=== PATIENT | female | born 1935 | race Caucasian/White ===

== ENCOUNTER 2016-06-19 10:34 | Inpatient (IN) | payer MEDICARE, BC ==
[2016-06-19] MEDS ORDERED: Lactated Ringers 1,000 ML IV ONE (10:53)
[2016-06-19] MEDS ORDERED: Ondansetron 4 MG/2 ML SDV IVPUSH ONE (10:53)
[2016-06-19] MEDS ORDERED: Famotidine 20 MG/2 ML SDV IVPUSH ONE (10:53)
[2016-06-19] MEDS ORDERED: Pantoprazole 40 MG Vial IVPUSH ONE (10:53)
[2016-06-19 11:28] LABS: CHLORIDE,CL 104 mmol/L (98-107); SODIUM,NA 140 mmol/L (136-145)
--- NOTE | 2016-06-19 12:18 | EDM.PDOC ---
ED HPI GI/ABDOMINAL - General Chief Complaint: Gastrointestinal Problem Stated Complaint: nausea, emesis, loose stools Time Seen by Provider: 06/19/16 10:35 Source of Information: Reports: Patient, Old records ([facility] chart/EMR) History Limitations: Reports: No limitations - History of Present Illness INITIAL COMMENTS - FREE TEXT/NARRATIVE: The patient was transported via city transport van to the emergency room for evaluation of 10/26 specific diffuse abdominal cramping associated with 8 episodes of yellow emesis, moderate diarrhea, and nausea with symptoms starting at about 04:00 A.m. this morning. She has not taken any medications for her symptoms and did not take her morning medications to this point. Patient did get an influenza booster this season with no history of known exposure to infection, food poisoning, etc.. No recent history of other abdominal pain, heartburn, melena, gross hematochezia, hematemesis, or any food intolerance, including fatty foods, etc..The patient denies any chest pain/pressure, heart flutter, dizziness, orthostasis, orthopnea, diaphoresis, paresthesias, recent decreased exercise tolerance, or any other anginal-type symptoms. The patient also denies any recent fever, cough, wheezing, dyspnea, etc.. Symptom Onset Date: 06/19/16 Symptom Onset Time: 04:00 Timing/Duration: Reports: Getting worse, Intermittent Location: generalized Quality: Reports: cramping Severity: moderate Improves with: Reports: other (None) Worsens with: Reports: other (None) Context: Reports: other (As above) Associated Symptoms (-Female): Reports: nausea/vomiting. 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 (see below) (None) - Related Data Allergies/ADRs: Allergies Allergy/AdvReac Type Severity Reaction Status Date / Time ciprofloxacin [From Cipro] Allergy Severe Hives Verified 05/02/16 10:04 ciprofloxacin HCl Allergy Severe Hives Verified 05/02/16 10:04 [From Cipro] Sulfa (Sulfonamide Allergy Severe Hives Verified 05/02/16 10:04 Antibiotics) Penicillins Allergy Intermediate Fainting Verified 05/02/16 10:04 prednisone Allergy Intermediate Swelling Verified 05/02/16 10:04 aspirin Allergy Mild Stomach Verified 05/02/16 10:04 Upset cod liver oil Allergy Mild Stomach Verified 05/02/16 10:04 Upset meperidine HCl [From Demerol] Allergy Mild Stomach Verified 05/02/16 10:04 Upset NSAIDS (Non-Steroidal Allergy Mild Stomach Verified 05/02/16 10:04 Anti-Inflamma Upset Fish Containing Products Allergy Cannot Verified 05/02/16 10:04 Remember morphine Allergy Stomach Verified 05/02/16 10:[address] Scan dye Allergy Severe Hives Uncoded 05/02/16 10:04 hand beer cooler Allergy Severe Difficulty Uncoded 05/02/16 10:04 Breathing Vitamins Allergy Mild Stomach Uncoded 05/02/16 10:04 Upset Home Meds: Home Meds Budesonide [Pulmicort] 0.5 mg IH BID 08/21/13 [History] Furosemide [Lasix] 20 mg PO DAILY 08/21/13 [History] Omeprazole [Prilosec] 20 mg PO DAILY 08/21/13 [History] Lutein 12 mg PO PCDINNER 05/28/14 [History] Meclizine [Antivert] 25 mg PO TID PRN 05/28/14 [History] Montelukast Sodium [Singulair] 10 mg PO DAILY@1200 05/28/14 [History] Albuterol [Proair HFA] 1 - 2 inh INH Q4HR PRN 11/27/14 [History] Calcium Carb/Vitamin D3/Vit K1 [Calcium + Vit D & K Chew] 1 each PO DAILY [History] Gabapentin [Neurontin] 3 cap PO BEDTIME 03/04/16 [History] Gabapentin [Neurontin] 100 mg PO DAILY 03/04/16 [History] Albuterol Sulfate 2.5 mg IH QID PRN #20 ml 05/02/16 [Rx] Cefprozil 500 mg PO BID #14 tablet 05/02/16 [Rx] Cyanocobalamin (Vitamin B-12) [Vitamin B-12] 1,000 mcg PO DAILY@1200 05/02/16 [ History] Past Medical History HEENT History: Reports: Cataract, Impaired vision, Macular degeneration, Retinal detachment, Other (see below). Denies: Allergic rhinitis, Glaucoma, Hard of hearing Other HEENT History: Cataract surgery as below, patient wears glasses, bilateral macular degeneration with right sided surgery as below, intraocular injections of the left eye currently, surgery for retinal detachment as below Cardiovascular History: Reports: Arrhythmia, Cardiomyopathy, Heart Failure, Heart murmur, High cholesterol, Hypertension, Syncope, Other (see below). Denies: Afib, Aneurysm, Blood clots/VTE/DVT, Bypass, CAD, DE, Pacemaker, PTCA, Stents Other Cardiovascular History: PVCs, Incomplete right bundle branch block diagnosed on 05/22/12, cardiomegaly with grade 1 mild diastolic dysfunction by echocardiogram, moderate aortic valve insufficiency and mild mitral valve insufficiency by echocardiogram, fatty liver number syncope on 05/28/14 Respiratory History: Reports: Asthma, COPD, Pulmonary fibrosis, Other (see below ). Denies: PE Other Respiratory History: Possible pulmonary nodules Gastrointestinal History: Reports: Diverticulosis, Gastritis, GERD, Hepatitis, PUD, Other (see below). Denies: Celiac disease, Cholelithiasis, Chronic constipation, Chronic diarrhea, Colon polyp, GI bleed, Helicobacter pylori, Hiatal hernia, Inflammatory bowel disease, Irritable bowel syndrome, Jaundice, Pancreatitis Other Gastrointestinal History: Hepatitis of unknown type in 1945, dysfunctional gallbladder requiring surgery as below Genitourinary History: Reports: Urinary incontinence, UTI, recurrent. 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 Denies: Back pain, chronic, Fracture, Gout, Neck pain, chronic, RA, SLE Neurological History: Reports: Concussion, Headaches, chronic, Head trauma, Seizure, Speech problems, Vertigo, Other (see below). 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 Denies: Abuse, victim of, ADD, ADHD, Addiction, Psych Hospitalization(s), Psychosis, PTSD, Suicide attempt , Suicidal ideation Endocrine/Metabolic History: Reports: Osteoporosis, Other (see below). Denies: Diabetes, type I, Diabetes, type II, Hypothyroidism, IDDM Other Endocrine/Metabolic History: Unknown type of thymus disorder in the Hematologic History: Reports: Anemia, Blood transfusion(s), Iron deficiency, Other (see below) Other Hematologic History: Frozen plasma 1980 but no other blood transfusion, iron shots prior to third /delivery Immunologic History: Reports: None. Denies: AIDS, HIV, SLE Oncologic (Cancer) History: Reports: Basal cell carcinoma. Denies: Cervix, Hodgkin's Lymphoma, Leukemia, Lymphoma, Malignant melanoma, Metastatic, Squamous cell carcinoma, Uterine Other Oncologic History: Basal cell carcinoma of the chest and both hands in about 2012 Dermatologic History: Reports: None. Denies: Eczema, Psoriasis - Infectious Disease History Infectious Disease History: Reports: Chicken pox, Measles, Mumps. Denies: C- difficile, MRSA, Pertussis (whooping cough), Rheumatic Fever, Rubella, Scarlet fever, Shingles, VRE - Past Surgical History Head Surgeries/Procedures: Reports: None HEENT Surgical History: Reports: Cataract surgery, Eye surgery, Oral surgery, Retinal, Other (see below). Denies: Adenoidectomy, Laser surgery, LASIK, Myringotomy w tube(s), Naso-sinus surgery, Tonsillectomy Other HEENT Surgeries/Procedures: Right cataract surgery on 11/25/13, repair of right retinal detachment and right-sided repair of macular degeneration on , complete teeth extraction Cardiovascular Surgical History: Reports: Varicose, Other (see below). Denies: AAA repair, Aneurysm, Carotid stents, Coronary artery bypass, Pacer, Percutaneous transluminal angioplasty Other Cardiovascular Surgeries/Procedures: Varicose vein surgery of the upper legs bilaterally in about 2010 Respiratory Surgical History: Reports: None. Denies: Thoracentesis GI Surgical History: Reports: Appendectomy, Cholecystectomy, Hernia, abdominal, Hernia repair/other, Other (see below). Denies: Hernia, inguinal Other GI Surgeries/Procedures: Appendectomy concurrent with hysterectomy as below, laparoscopic cholecystectomy with concomitant umbilical hernia repair on 11/30/11 secondary to dysfunctional gallbladder, previous flexible sigmoidoscopies versus proctoscopy x2 in the Female Surgical History: Reports: D&C, Dilitation & evacuation, Hysterectomy , Salpingo-oophorectomy, Other (see below) Other Female Surgeries/Procedures: D&C secondary to first trimester SAB in 1958, total hysterectomy with concomitant bilateral salpingo-oophorectomy secondary to uterine fibroids in 1978 although her cervix was not removed until subsequent surgery in the secondary to nonspecific inflammation? Endocrine Surgical History: Reports: None. Denies: Thyroid biopsy Neurological Surgical History: Reports: None. Denies: C-Spine, Discectomy, Laminectomy, Lumbar spine, Spinal fusion, Vertebroplasty Musculoskeletal Surgical History: Reports: None. Denies: Amputation, Arthroscopic procedure, Carpal tunnel, Ganglion cyst, Joint replacement, ORIF, Shoulder surgery Oncologic Surgical History: Reports: None Dermatological Surgical History: Reports: None - Past Imaging History Past Imaging History: Reports: Angiography (Catheterization in 2003), Cardiac echo (Last echocardiogram on 11/24/14 with ejection fraction of 55-60% with valvular disease as above), CAT scan (Last CT scan of the head on 03/04/16 with previous evaluations on 01/26/15, 11/23/14 and 05/28/14), Mammogram (Last on ), MRA (Of the brain and neck on 11/23/14), MRI (Of the brain on 11/24/14), Sleep study (11/15/11), Stress testing (Negative Kim-scan on 11/26/14), Ultrasound ( Abdominal ultrasound on 06/09/15 with previous evaluations in October 2011 and on 08/04/10), Other (see below) (Last EEG on 01/26/15 Positive HIDA scan on 11/02/11 , previous flexible sigmoidoscopies versus proctoscopy x2 in the past in the ) Social & Family History - Family History HEENT: Reports: Allergic rhinitis, Other (see below). Denies: Glaucoma, Macular degeneration, Retinal detachment Other HEENT Family History: Allergic rhinitis in 4 sisters Cardiac: Reports: CAD, Hypertension, DE, Other (see below). Denies: Afib, Aneurysm, Arrhythmia, Blood clots/VTE/DVT, Bypass, Pacemaker, PVD/COD Other Cardiac Family History: Hypertension in parents, 3 brothers, and 3 sisters , brother with fatal DE at age 60 Respiratory: Reports: None. Denies: Asthma, COPD, PE, Pneumothorax, Sleep apnea GI: Reports: None. Denies: Celiac disease, Colon polyps, GERD, GI bleed, Inflammatory bowel disease, Irritable bowel syndrome, PUD : Reports: None. Denies: Dialysis, Renal calculus, Renal disease/ insufficiency, UTI, recurrent OBGYN: Reports: None Musculoskeletal: Reports: None. Denies: Arthritis, Gout, RA, SLE Neurological: Reports: CVA, Other (see below). Denies: Alzheimers disease, Cerebral aneurysms, Dementia, MS, Parkinson's, Seizure, TIA Other Neurological Family History: Father with fatal CVA at 74 Psychiatric: Reports: None. Denies: Abuse, victim of, ADD, ADHD, Anxiety, Depression, Panic attack, Psych hospitalization(s), PTSD Endocrine/Metabolic: Reports: None. Denies: Diabetes, type I, Diabetes, type II , Hypothyroidism, IDDM Hematologic: Reports: None. Denies: Anemia, SLE, Transfusion reaction Immunologic: Reports: None. Denies: AIDS, HIV, SLE Dermatologic: Reports: None. Denies: Eczema, Psoriasis Oncologic: Reports: Lung, Metastatic, Thyroid, Other (see below). Denies: Colon , Hodgkin's lymphoma, Leukemia, Lymphoma, Non-Hodgkin's lymphoma, Skin Other Oncologic Family History: Mother with unknown type of MANAGER DEPARTMENT cancer fatal at age 84 with apparent metastases to the thyroid gland? - Tobacco Use Smoking Status *Q: Never Smoker Used Tobacco, but Quit: No Smoking Cessation Information Provided To Patient: No Second Hand Smoke Exposure: No Second Hand Smoke Education Provided: No - Caffeine Use Caffeine Use: Reports: Coffee (3-4 of weak coffee per day), Soda (Very occasional). Denies: Energy drinks, Tea - Alcohol Use Alcohol Use History: Yes Days Per Week of Alcohol Use: 0 (No previous DWIs, problems with alcohol abuse, etc.) Number of Drinks Per Day: 1 (Occasional wine for holidays for holidays) Total Drinks Per Week: 0 Alcohol Use in Last Twelve Months: Yes Alcohol Use Frequency: Socially - Recreational Drug Use Recreational Drug Use: No Drug Use in Last 12 Months: No Recreational Drug Type: Denies: Amphetamines (Speed), Cocaine, Flunitrazepam, Heroin, Inhalants (Glues, Solvents, Aerosols), Ketamines, LSD (Acid), Marijuana/ Hashish, Methamphetamine - Living Situation & Occupation Living situation: Reports: (89, spouse is legally blind) 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 Denies: fever, chills, weakness, fatigue , night sweats, diaphoresis, decreased appetite, weight loss, weight gain HEENT: Reports: Glasses. Denies: Contact Lenses, Dental pain, Ear discharge, Ear pain, Eye discharge, Eye pain, Hearing loss, Rhinitis, Sinus problem, Throat pain, Vertigo, Vision change Respiratory: Reports: No Symptoms. Denies: Shortness of Breath, Wheezing, Pleuritic Chest Pain, Cough Cardiovascular: Reports: No symptoms. Denies: Chest pain, Blood pressure problem, Claudication, Dyspnea on exertion, Edema, Lightheadedness, Orthopnea, Palpitations, PND, Syncope Endocrine: Reports: no symptoms. Denies: fatigue GI/Abdominal: Reports: Abdominal pain, Diarrhea, Nausea, Stool incontinence ( Secondary to diarrhea), Vomiting. Denies: Anorexia, Black stool, Bloody stool, Constipation, Decreased appetite, Difficulty swallowing, Distension, Flatus, Hematemesis, Hematochezia, Melena, Mucous in stool : Reports: incontinence (Stable by history). Denies: discharge, dysuria, flank pain, frequency, hematuria, urgency, urinary retention Musculoskeletal: Reports: no symptoms. Denies: neck pain, shoulder pain, back pain, leg pain Skin: Reports: no symptoms. Denies: diaphoresis, bruising, pruritis, rash, wound Neurological: Reports: Headache (After arrival to the emergency room). Denies: Confusion, Dizziness, Numbness, Paresthesia, Seizure, Syncope, Tingling, Tremors , Trouble Speaking, Difficulty Walking, Weakness, Change in Speech, Gait Disturbance Psychiatric: Reports: No symptoms. Denies: Agitation, Anxiety, Confusion, Depression, Hallucinations Hematologic/Lymphatic: Reports: no symptoms Immunologic: Reports: no symptoms ED EXAM, GI/ABD - Physical Exam Exam: See Below Exam Limited By: No limitations General Appearance: alert, WD/WN, no apparent distress. No: anxious Eyes: bilateral: normal appearance (No nystagmus), EOMI (PERRLA) Ears: normal external exam, normal canal, hearing grossly normal, normal TMs Nose: normal inspection, normal mucosa, no blood Throat/Mouth: Normal lips, Normal gums, Normal voice, No airway compromise, Dysphagia. No: Normal teeth (Complete absent dentition with patient only wearing her upper dentures), Normal oropharynx (Mild dry mucosa), Inflammation, Perioral cyanosis Head: atraumatic, normocephalic. No: facial swelling, facial tenderness, sinus tenderness Neck: normal inspection, supple, non-tender, full range of motion, carotid bruit (Borderline mild bilateral carotid bruits). No: lymphadenopathy (L), lymphadenopathy (R), thyromegaly Respiratory/Chest: no respiratory distress, lungs clear, normal breath sounds, no accessory muscle use, chest non-tender. No: pleural rub, retractions Cardiovascular: normal peripheral pulses, regular rate, rhythm, no edema, no gallop, no JVD, no murmur (Despite echocardiogram results as above), no rub. No : gallop/S3, gallop/S4, friction rub GI/Abdominal: normal bowel sounds, no organomegaly, no distention, no abnormal bruit, no mass, tenderness (Mild diffuse nonspecific palpation pain), rebound ( Portable). No: guarding (Female) Exam: Deferred Rectal (Female) Exam: Normal Exam, Normal rectal tone, Heme - stool (Brown stool ), Hemorrhoids (Grade 2-3 internal/external hemorrhoids with moderate perirectal inflammation), Tenderness (No Dyllan space tenderness). No: Fecal impaction Back Exam: normal inspection, full range of motion. No: CVA tenderness (L), CVA tenderness (R), muscle spasm Extremities: normal inspection, normal range of motion, non-tender, no pedal edema, normal capillary refill. No: Malcolm's Sign Neurological: alert, oriented, CN II-XII intact, normal cognition, normal gait, normal reflexes (Negative Babinski's), no motor/sensory deficits Psychiatric: normal affect, normal mood Skin Exam: Warm, Dry, Intact, Normal color, No rash. No: Diaphoretic, Ecchymosis, Jaundice, Lymphangitis, Pallor, Petechiae, Rash, Wound/incision Lymphatic: no adenopathy Course - Vital Signs Last Recorded V/S: Last Vital Signs Temp 37.1 C 06/19/16 10:56 Pulse 66 04/03/17 10:56 Resp 16 06/19/16 10:56 BP 145/76 H 06/19/16 10:56 Pulse Ox 96 06/19/16 10:56 Vital Signs - 24 hr 06/19/16 10:56 Temperature [ 37.1 C Oral] Pulse, 66 Peripheral [ Left Brachial] Respiratory 16 Rate Blood Pressure 145/76 H [Left Upper Arm ] O2 Sat by Pulse 96 Oximetry - Orders/Labs/Meds Orders: Active Orders 24 hr Category Date Time Status Peripheral IV Care [RC] . DIRECTED Care 06/19/16 10:54 Active Nothing per Oral Now Diet [DIET] Diet 06/19/16 Breakfast Active Abdomen Series w Chest 1V [CR] Stat Exams 06/19/16 10:52 Taken Gabapentin [Neurontin] Med 06/19/16 12:30 Active 100 mg PO DAILY Sodium Chloride 0.9% [Saline Flush] Med 06/19/16 10:53 Active 10 ml FLUSH ASDIRECTED PRN cefTRIAXone [Rocephin] 1 gm Med 06/19/16 12:30 Active Sodium Chloride 0.9% [Normal Saline] 100 ml IV Q12H metroNIDAZOLE/Normal Saline [Flagyl 500 MG in NS 100 ML Med 06/19/16 12:30 Active ] 500 mg Premix Bag 1 bag IV Q8H Peripheral IV Insertion Adult [OM.PC] Stat Oth 06/19/16 10:53 Ordered Medication Orders Gabapentin (Neurontin) 100 mg PO DAILY [facility] Last Admin: 06/19/16 12:35 Dose: 100 mg Ceftriaxone Sodium 1 gm/ (Sodium Chloride) 100 mls @ 200 mls/hr IV Q12H CHRISTY Last Admin: 06/19/16 12:34 Dose: 200 mls/hr Metronidazole 500 mg/ Premix 100 mls @ 100 mls/hr IV Q8H CHRISTY Last Admin: 06/19/16 13:08 Dose: 100 mls/hr Sodium Chloride (Saline Flush) 10 ml FLUSH ASDIRECTED PRN PRN Reason: Keep Vein Open Labs: Laboratory Tests 06/19/16 06/19/16 06/19/16 Range/Units 11:05 11:05 11:05 WBC 11.9 H (4.0-10.2) K/uL RBC 4.79 (3.77-5.09) M/uL Hgb 14.4 (11.7-15.5) g/dL Hct 44.1 (34.0-46.0) % MCV 92.1 (84.0-98.0) fL MCH 30.1 (28.2-33.3) pg MCHC 32.7 (31.7-36.0) g/dL RDW 13.1 (11.2-14.1) % Plt Count 227 (150-350) K/uL Neut % (Auto) 81.6 H (45.0-80.0) % Lymph % (Auto) 11.9 (10.0-50.0) % [place] % (Auto) 5.8 (2.0-14.0) % Eos % (Auto) 0.6 (0.0-5.0) % Baso % (Auto) 0.1 (0.0-2.0) % Neut # (Auto) 9.75 H (1.40-7.00) K/uL Lymph # (Auto) 1.42 (0.50-3.50) K/uL [place] # (Auto) 0.69 (0.00-1.00) K/uL Eos # (Auto) 0.07 (0.00-0.50) K/uL Baso # (Auto) 0.01 (0.00-0.20) K/uL PT (9.8-11.7) SEC INR APTT (23.5-30.0) SEC Sodium 140 (136-145) mmol/L Potassium 3.9 (3.5-5.1) mmol/L Chloride 104 (98-107) mmol/L Carbon Dioxide 27.0 (21.0-32.0) mmol/L BUN 12 (7-18) mg/dL Creatinine 0.68 (0.51-1.17) mg/dL Est Cr Clr Drug Dosing 46.61 mL/min Estimated GFR (MDRD) > 60 mL/min Glucose 114 H (74-106) mg/dL Lactic Acid (0.4-2.0) mmol/L Uric Acid 4.7 (2.6-7.2) mg/dL Calcium 8.7 (8.5-10.1) mg/dL Magnesium 1.9 (1.8-2.4) mg/dL Total Bilirubin 0.4 (0.2-1.0) mg/dL AST 37 (15-37) U/L ALT 40 (12-78) U/L Alkaline Phosphatase 108 (46-116) IU/L Total Protein 8.0 (6.4-8.2) g/dL Albumin 3.6 (3.4-5.0) g/dL Amylase 59 (25-115) U/L Lipase 162 (73-393) U/L H. pylori IgG Antibody Negative (NEGATIVE) 06/19/16 06/19/16 Range/Units 11:05 11:05 WBC (4.0-10.2) K/uL RBC (3.77-5.09) M/uL Hgb (11.7-15.5) g/dL Hct (34.0-46.0) % MCV (84.0-98.0) fL MCH (28.2-33.3) pg MCHC (31.7-36.0) g/dL RDW (11.2-14.1) % Plt Count (150-350) K/uL Neut % (Auto) (45.0-80.0) % Lymph % (Auto) (10.0-50.0) % [place] % (Auto) (2.0-14.0) % Eos % (Auto) (0.0-5.0) % Baso % (Auto) (0.0-2.0) % Neut # (Auto) (1.40-7.00) K/uL Lymph # (Auto) (0.50-3.50) K/uL [place] # (Auto) (0.00-1.00) K/uL Eos # (Auto) (0.00-0.50) K/uL Baso # (Auto) (0.00-0.20) K/uL PT 10.9 (9.8-11.7) SEC INR 1.0 APTT 25.2 (23.5-30.0) SEC Sodium (136-145) mmol/L Potassium (3.5-5.1) mmol/L Chloride (98-107) mmol/L Carbon Dioxide (21.0-32.0) mmol/L BUN (7-18) mg/dL Creatinine (0.51-1.17) mg/dL Est Cr Clr Drug Dosing mL/min Estimated GFR (MDRD) mL/min Glucose (74-106) mg/dL Lactic Acid 2.1 H (0.4-2.0) mmol/L Uric Acid (2.6-7.2) mg/dL Calcium (8.5-10.1) mg/dL Magnesium (1.8-2.4) mg/dL Total Bilirubin (0.2-1.0) mg/dL AST (15-37) U/L ALT (12-78) U/L Alkaline Phosphatase (46-116) IU/L Total Protein (6.4-8.2) g/dL Albumin (3.4-5.0) g/dL Amylase (25-115) U/L Lipase (73-393) U/L H. pylori IgG Antibody (NEGATIVE) Microbiology 06/19/16 12:10 Influenza Type A Antigen Screen - Final Nasopharyngeal Swab - Nare, Right NEGATIVE INFLUENZA A VIRUS AG Influenza Type B Antigen Screen - Final NEGATIVE INFLUENZA B VIRUS AG 06/19/16 10:53 Stool Occult Blood (NIKA) - Final Stool / Feces NEGATIVE OCCULT BLOOD Meds: Medications Generic Name Dose Route Start Last Admin Trade Name Freq PRN Reason Stop Dose Admin Gabapentin 100 mg 06/19/16 12:30 06/19/16 12:35 Neurontin PO 100 mg DAILY CHRISTY Administration Ceftriaxone Sodium 1 gm/ 100 mls @ 200 mls/hr 06/19/16 12:30 06/19/16 12:34 Sodium Chloride IV 200 mls/hr Q12H CHRISTY Administration Metronidazole 500 mg/ Premix 100 mls @ 100 mls/hr 06/19/16 12:30 06/19/16 13: 08 IV 100 mls/hr Q8H CHRISTY Administration Sodium Chloride 10 ml 06/19/16 10:53 Saline Flush FLUSH ASDIRECTED PRN Keep Vein Open Discontinued Medications Generic Name Dose Route Start Last Admin Trade Name Freq PRN Reason Stop Dose Admin Famotidine 40 mg 06/19/16 10:53 06/19/16 11:26 Pepcid IVPUSH 06/19/16 10:54 40 mg ONETIME ONE Administration Lactated Ringer's 1,000 mls @ 999 mls/hr 06/19/16 10:53 06/19/16 11:57 Ringers, Lactated IV 06/19/16 11:53 999 mls/hr .BOLUS ONE Administration Ondansetron HCl 4 mg 06/19/16 10:53 06/19/16 11:26 Zofran IVPUSH 06/19/16 10:54 4 mg ONETIME ONE Administration Pantoprazole Sodium 40 mg 06/19/16 10:53 06/19/16 11:26 Protonix Iv IVPUSH 06/19/16 10:54 40 mg ONETIME ONE Administration - Radiology Interpretation Free Text/Narrative:: Acute abdominal x-rays shows evidence of poor inspiratory film with moderate cardiomegaly, COPD, and diffuse stool with probable pulmonary hypertension. Occasional fluid levels and somewhat increased bowel gaseous pattern, however no evidence of significant ileus, obstruction, or free air moderate osteoarthritic changes in the spine Departure - Departure Time of Disposition: 13:45 Disposition: Admitted As Inpatient 66 Condition: fair Clinical Impression: Abdominal pain, Peritonitis, Lactic acid increased, Peptic reflux disease, COPD (chronic obstructive pulmonary disease), Dehydration, Seizure disorder, HTN , Benign hypertension, Heart disease Referrals: Josiah Reardon PA [Primary Care Provider] - Forms: ED Department Discharge Care Plan Goals: See plan - Problem List & Annotations (1) Abdominal pain SNOMED Code(s): 35065589 Code(s): R10.9 - UNSPECIFIED ABDOMINAL PAIN Status: Acute Priority: High Current Visit: Yes Onset Date: 06/19/16 Annotation/Comment:: Nonspecific abdominal pain with possible beginning secondary ileus and peritonitis as below. Differential diagnoses include viral gastroenteritis, diverticulitis, etc. Blood work and x-rays to be repeated in the a.m.. Abdominal assessments with vitals. Qualifiers: Abdominal location: generalized Qualified Code(s): R10.84 - Generalized abdominal pain (2) Peritonitis SNOMED Code(s): 43666540, 91695956, 326610249 Code(s): K65.9 - PERITONITIS, UNSPECIFIED Status: Acute Priority: High Current Visit: Yes Onset Date: 06/19/16 Annotation/Comment:: Strong possibility of diverticulitis with secondary peritonitis. IV Rocephin and IV Flagyl initiated in the emergency room. Consider CT scan of the abdomen and pelvis depending on her clinical course. Note that patient is allergic to contrast dye. Patient would likely benefit from an EGD and colonoscopy on an outpatient basis. Surgical/GI consultation as needed (3) Lactic acid increased SNOMED Code(s): 32336951 Code(s): E87.2 - ACIDOSIS Status: Acute Priority: High Current Visit: Yes Onset Date: 06/19/16 Annotation/Comment:: Mildly elevated lactic acid level. IV fluids initiated. Repeat lactic acid level in 6 hours and in the a.m. No clinical evidence of significant acidosis (4) Peptic reflux disease SNOMED Code(s): 61867252 Code(s): K21.9 - GASTRO-ESOPHAGEAL REFLUX DISEASE WITHOUT ESOPHAGITIS Status: Chronic Priority: Medium Current Visit: No Annotation/Comment:: Stable by history. High-dose IV Pepcid and IV Protonix given in the emergency room as GI prophylaxis (5) HTN, Benign hypertension SNOMED Code(s): 56317177 Code(s): I10 - ESSENTIAL (PRIMARY) HYPERTENSION Status: Chronic Priority : Medium Current Visit: Yes Annotation/Comment:: Blood pressures under good control in the emergency room and previously by patient history. (6) Dehydration SNOMED Code(s): 03655542 Code(s): E86.0 - DEHYDRATION Status: Acute Priority: High Current Visit : No Onset Date: 06/19/16 Annotation/Comment:: 1 L of lactated Ringer's IV bolus initiated in the emergency room with continuation of IV fluids thereafter (7) Seizure disorder SNOMED Code(s): 774215648 Code(s): G40.909 - EPILEPSY, UNSP, NOT INTRACTABLE, WITHOUT STATUS EPILEPTICUS Status: Chronic Priority: High Current Visit: Yes Onset Date : 03/09/15 Annotation/Comment:: Morning dose of Dilantin given in the emergency room. Seizure disorder has been under good control by her history. Dilantin level in the a.m. (8) Heart disease SNOMED Code(s): 74627048 Code(s): I51.9 - HEART DISEASE, UNSPECIFIED Status: Chronic Priority: Medium Current Visit: Yes Annotation/Comment:: Note history of CHF and valvular disease as above. Stable by history with no recent chest pain, anginal complaints, etc. No evidence of clinical CHF. (9) COPD (chronic obstructive pulmonary disease) SNOMED Code(s): 76548310 Code(s): J44.9 - CHRONIC OBSTRUCTIVE PULMONARY DISEASE, UNSPECIFIED Status : Chronic Priority: Medium Current Visit: No Annotation/Comment:: Stable by history with no recent fever or bronchitic-type symptoms, etc. Qualifiers: COPD type: unspecified COPD Qualified Code(s): J44.9 - Chronic obstructive pulmonary disease, unspecified - Problem List Review Problem List Initiated/Reviewed/Updated: Yes - My Orders Last 24 Hours: My Active Orders 06/19/16 10:52 Abdomen Series w Chest 1V [CR] Stat 06/19/16 10:53 Sodium Chloride 0.9% [Saline Flush] 10 ml FLUSH ASDIRECTED PRN Peripheral IV Insertion Adult [OM.PC] Stat 06/19/16 10:54 Peripheral IV Care [RC] . DIRECTED 06/19/16 12:30 Gabapentin [Neurontin] 100 mg PO DAILY cefTRIAXone [Rocephin] 1 gm Sodium Chloride 0.9% [Normal Saline] 100 ml IV Q12H metroNIDAZOLE/Normal Saline [Flagyl 500 MG in NS 100 ML] 500 mg Premix Bag 1 bag IV Q8H 06/19/16 Breakfast Nothing per Oral Now Diet [DIET] - Assessment/Plan Admission H&P: Please use this note as an admission H&P Last 24 Hours: My Active Orders 06/19/16 10:52 Abdomen Series w Chest 1V [CR] Stat 06/19/16 10:53 Sodium Chloride 0.9% [Saline Flush] 10 ml FLUSH ASDIRECTED PRN Peripheral IV Insertion Adult [OM.PC] Stat 06/19/16 10:54 Peripheral IV Care [RC] . DIRECTED 06/19/16 12:30 Gabapentin [Neurontin] 100 mg PO DAILY cefTRIAXone [Rocephin] 1 gm Sodium Chloride 0.9% [Normal Saline] 100 ml IV Q12H metroNIDAZOLE/Normal Saline [Flagyl 500 MG in NS 100 ML] 500 mg Premix Bag 1 bag IV Q8H 06/19/16 Breakfast Nothing per Oral Now Diet [DIET] Assessment:: As above Plan: As above. Extensive precautions were given to the patient, who is in agreement with the treatment plan. The patient will require about 3-4 days of inpatient/ acute care secondary to multiple health problems as above.
[2016-06-19] MEDS ORDERED: Gabapentin 100 MG Cap PO SCH (12:30)
[2016-06-19] MEDS: cefTRIAXone 1 GM in Sodium Chloride 0.9% 100 ML IV SCH ×2 (12:34→23:37)
[2016-06-19] MEDS: metroNIDAZOLE/Normal Saline 500 MG in Premix Bag 1 BAG IV SCH ×2 (13:08→19:59)
[2016-06-19] MEDS ORDERED: Acetaminophen 325 MG Tab PO PRN (14:00)
[2016-06-19] MEDS ORDERED: Albuterol 0.083% 2.5 MG/3 ML Neb Soln INH PRN (14:00)
[2016-06-19] MEDS ORDERED: Sodium Chloride 0.9% 10 ML Syringe FLUSH PRN (14:09)
[2016-06-19] MEDS ORDERED: Temazepam 15 MG Cap PO PRN (14:09)
[2016-06-19] MEDS ORDERED: Albuterol/Ipratropium 3.0-0.5 MG/3 ML Neb Soln NEB PRN (14:09)
[2016-06-19] MEDS: Sodium Chloride 0.9% 10 ML Syringe FLUSH PRN (14:12)
[2016-06-19] MEDS: Ondansetron 4 MG/2 ML SDV IVPUSH PRN ×2 (14:12→19:59)
[2016-06-19] MEDS: Dextrose 5%-Lactated Ringers 1,000 ML IV SCH (15:41)
[2016-06-19] MEDS: Budesonide 0.25 MG/2 ML Neb Susp NEB SCH (19:58)
[2016-06-19] MEDS: Albuterol/Ipratropium 3.0-0.5 MG/3 ML Neb Soln NEB SCH (19:58)
[2016-06-19] MEDS: Gabapentin 100 MG Cap PO SCH (19:58)
[2016-06-19] MEDS: Pantoprazole 40 MG Vial IVPUSH SCH (23:30)
[2016-06-20] MEDS: Sodium Chloride 0.9% 10 ML Syringe FLUSH PRN ×5 (00:17→11:22)
[2016-06-20] MEDS: Albuterol/Ipratropium 3.0-0.5 MG/3 ML Neb Soln NEB SCH ×4 (01:37→20:14)
[2016-06-20] MEDS: metroNIDAZOLE/Normal Saline 500 MG in Premix Bag 1 BAG IV SCH ×3 (04:38→20:16)
[2016-06-20 07:53] LABS: CHLORIDE,CL 107 mmol/L (98-107); SODIUM,NA 141 mmol/L (136-145)
[2016-06-20] MEDS: Dextrose 5%-Lactated Ringers 1,000 ML IV SCH (08:15)
[2016-06-20] MEDS: Furosemide 20 MG Tab PO SCH (08:16)
[2016-06-20] MEDS: Gabapentin 100 MG Cap PO SCH ×2 (08:16→20:15)
[2016-06-20] MEDS: Budesonide 0.25 MG/2 ML Neb Susp NEB SCH ×2 (08:16→20:16)
[2016-06-20] MEDS: Pantoprazole 40 MG Vial IVPUSH SCH (10:17)
[2016-06-20] MEDS: Ondansetron 4 MG/2 ML SDV IVPUSH PRN (10:17)
[2016-06-20] MEDS ORDERED: Iopamidol 612 MG/ML 100 ML Bottle IVPUSH ONE (10:30)
[2016-06-20] MEDS ORDERED: methylPREDNISolone Sodium Succinate 125 MG/2 ML SDV IVPUSH ONE (10:50)
--- NOTE | 2016-06-20 11:05 | PCM.PN ---
- General Info Date of Service: 06/20/16 Admission Dx/Problem (Free Text): Abdominal pain Functional Status: Reports: pain controlled, ambulating, urinating, incentive spirometry. Denies: tolerating diet (N.p.o.), new symptoms Pain Score: 5 - Review of Systems General: Reports: Fever (Yesterday evening however afebrile this morning). Denies: Weakness, Fatigue, Malaise, Chills, Night Sweats, Appetite (Ready to eat breakfast) HEENT: Reports: post nasal drip, sinus congestion, rhinitis. Denies: ear pain, eye pain, headaches, sore throat, visual changes Pulmonary: Reports: cough. Denies: shortness of breath, pleuritic chest pain, sputum, hemoptysis, wheezing Cardiovascular: Reports: No Symptoms. Denies: Chest Pain, Palpitations, Dyspnea on Exertion, Orthopnea, PND, Edema, Lightheadedness Gastrointestinal: Reports: Abdominal pain, Diarrhea. Denies: Constipation, Decreased appetite, Difficulty swallowing, Flatus, Hematochezia, Melena, Nausea , Vomiting Genitourinary: Reports: no symptoms. Denies: dysuria, frequency, burning, pain , urgency, incontinence, hematuria, retention, flank pain Musculoskeletal: Reports: no symptoms. Denies: neck pain, shoulder pain, arm pain, back pain, leg pain Skin: Reports: no symptoms. Denies: jaundice, diaphoresis, bruising Neurological: Reports: No Symptoms. Denies: Confusion, Dizziness, Numbness, Paresthesia, Tingling, Weakness Psychiatric: Reports: no symptoms. Denies: confusion, depression, anxiety - Patient Data Vitals - most recent: Last Vital Signs Temp 36.1 C 06/20/16 04:00 Pulse 65 06/20/16 07:56 Resp 17 06/20/16 07:56 BP 105/62 06/20/16 07:56 Pulse Ox 96 06/20/16 07:56 Weight - most recent: 74.843 kg I&O - last 24 hours: Intake & Output 06/19/16 06/20/16 06/20/16 22:59 06:59 14:59 Intake Total 444 Output Total 300 Balance 444 -300 Imaging Impressions - last 24 hrs: Acute abdominal x-rays shows progression of mild to moderate increased bowel gaseous pattern, including multiple fluid levels, however no free air. Moderate COPD and cardiomegaly noted with possible right middle lobe infiltrates versus atelectasis. Pulmonary hypertension with no evidence of CHF. Osteoarthritic changes noted. Note status post cholecystectomy Telephone consultation at 12:42 p.m. with the radiology department at [facility]. Verbal report of CT scan of the abdomen and pelvis with both oral and IV contrast positive for moderate diverticulosis in the sigmoid region, however no direct evidence of acute diverticulitis abscess, etc. No other acute findings noted with the patient status post cholecystectomy and appendectomy Lab Results last 24 hrs: Laboratory Results - last 24 hr 06/19/16 06/19/16 06/20/16 Range/Units 15:38 15:38 06:55 WBC 5.9 (4.0-10.2) K/uL RBC 3.92 (3.77-5.09) M/uL Hgb 11.8 D (11.7-15.5) g/dL Hct 36.4 (34.0-46.0) % MCV 92.9 (84.0-98.0) fL MCH 30.1 (28.2-33.3) pg MCHC 32.4 (31.7-36.0) g/dL RDW 13.1 (11.2-14.1) % Plt Count 213 (150-350) K/uL Neut % (Auto) 66.1 (45.0-80.0) % Lymph % (Auto) 22.4 (10.0-50.0) % Dillon % (Auto) 10.5 (2.0-14.0) % Eos % (Auto) 0.8 (0.0-5.0) % Baso % (Auto) 0.2 (0.0-2.0) % Neut # (Auto) 3.89 (1.40-7.00) K/uL Lymph # (Auto) 1.32 (0.50-3.50) K/uL Dillon # (Auto) 0.62 (0.00-1.00) K/uL Eos # (Auto) 0.05 (0.00-0.50) K/uL Baso # (Auto) 0.01 (0.00-0.20) K/uL PT (9.8-11.7) SEC INR APTT (23.5-30.0) SEC Sodium (136-145) mmol/L Potassium (3.5-5.1) mmol/L Chloride (98-107) mmol/L Carbon Dioxide (21.0-32.0) mmol/L BUN (7-18) mg/dL Creatinine (0.51-1.17) mg/dL Est Cr Clr Drug Dosing mL/min Estimated GFR (MDRD) mL/min Glucose (74-106) mg/dL Lactic Acid 1.3 (0.4-2.0) mmol/L Calcium (8.5-10.1) mg/dL Total Bilirubin (0.2-1.0) mg/dL AST (15-37) U/L ALT (12-78) U/L Alkaline Phosphatase (46-116) IU/L Total Protein (6.4-8.2) g/dL Albumin (3.4-5.0) g/dL Amylase (25-115) U/L Lipase (73-393) U/L Phenytoin Cancelled 06/20/16 06/20/16 06/20/16 Range/Units 06:55 06:55 06:55 WBC (4.0-10.2) K/uL RBC (3.77-5.09) M/uL Hgb (11.7-15.5) g/dL Hct (34.0-46.0) % MCV (84.0-98.0) fL MCH (28.2-33.3) pg MCHC (31.7-36.0) g/dL RDW (11.2-14.1) % Plt Count (150-350) K/uL Neut % (Auto) (45.0-80.0) % Lymph % (Auto) (10.0-50.0) % Dillon % (Auto) (2.0-14.0) % Eos % (Auto) (0.0-5.0) % Baso % (Auto) (0.0-2.0) % Neut # (Auto) (1.40-7.00) K/uL Lymph # (Auto) (0.50-3.50) K/uL Dillon # (Auto) (0.00-1.00) K/uL Eos # (Auto) (0.00-0.50) K/uL Baso # (Auto) (0.00-0.20) K/uL PT 11.7 (9.8-11.7) SEC INR 1.1 APTT 26.7 (23.5-30.0) SEC Sodium 141 (136-145) mmol/L Potassium 3.6 (3.5-5.1) mmol/L Chloride 107 (98-107) mmol/L Carbon Dioxide 26.1 (21.0-32.0) mmol/L BUN 9 (7-18) mg/dL Creatinine 0.78 (0.51-1.17) mg/dL Est Cr Clr Drug Dosing 40.63 mL/min Estimated GFR (MDRD) > 60 mL/min Glucose 106 (74-106) mg/dL Lactic Acid 1.3 (0.4-2.0) mmol/L Calcium 8.0 L (8.5-10.1) mg/dL Total Bilirubin 0.3 (0.2-1.0) mg/dL AST 21 (15-37) U/L ALT 31 (12-78) U/L Alkaline Phosphatase 80 (46-116) IU/L Total Protein 6.2 L (6.4-8.2) g/dL Albumin 2.7 L (3.4-5.0) g/dL Amylase 40 (25-115) U/L Lipase 92 (73-393) U/L Phenytoin Demarcus Results last 24 hrs: Microbiology 06/19/16 21:05 Stool Occult Blood (DEMARCUS) - Final Stool / Feces NEGATIVE OCCULT BLOOD Med Orders - Current: Current Medications Acetaminophen (Tylenol) 650 mg PO Q4H PRN PRN Reason: Pain (Mild 1-3)/fever Albuterol (Proventil Neb Soln) 2.5 mg INH Q2H PRN PRN Reason: SHORTNESS OF BREATH Albuterol/Ipratropium (Duoneb 3.0-0.5 Mg/3 Ml) 3 ml NEB Q4HRRT PRN PRN Reason: Dyspnea Albuterol/Ipratropium (Duoneb 3.0-0.5 Mg/3 Ml) 3 ml NEB Q6HRRT [facility] Last Admin: 06/20/16 08:16 Dose: 3 ml Budesonide (Pulmicort) 0.25 mg NEB BIDRT [facility] Last Admin: 06/20/16 08:16 Dose: 0.25 mg Cyanocobalamin (Vitamin B12) 1,000 mcg PO DAILY@1200 CHRISTY Furosemide (Lasix) 20 mg PO DAILY [facility] Last Admin: 06/20/16 08:16 Dose: 20 mg Gabapentin (Neurontin) 300 mg PO BEDTIME [facility] Last Admin: 06/19/16 19:58 Dose: 300 mg Gabapentin (Neurontin) 100 mg PO DAILY [facility] Last Admin: 06/20/16 08:16 Dose: 100 mg Ceftriaxone Sodium 1 gm/ (Sodium Chloride) 100 mls @ 200 mls/hr IV Q12H [facility] Last Admin: 06/19/16 23:37 Dose: 200 mls/hr Metronidazole 500 mg/ Premix 100 mls @ 100 mls/hr IV Q8H [facility] Last Admin: 06/20/16 04:38 Dose: 100 mls/hr Dextrose/Lactated Ringer's (Dextrose 5%-Lactated Ringers) 1,000 mls @ 80 mls/ hr IV ASDIRECTED [facility] Last Admin: 06/20/16 08:15 Dose: 80 mls/hr Methylprednisolone Sodium Succinate (Solu-Medrol) 125 mg IVPUSH ONETIME ONE Stop: 06/20/16 10:51 Montelukast Sodium (Singulair) 10 mg PO DAILY@1200 CHRISTY Ondansetron HCl (Zofran) 4 mg IVPUSH Q6H PRN PRN Reason: Nausea/Vomiting Last Admin: 06/20/16 10:17 Dose: 4 mg Pantoprazole Sodium (Protonix Iv) 40 mg IVPUSH Q12H [facility] Last Admin: 06/20/16 10:17 Dose: 40 mg Sodium Chloride (Saline Flush) 10 ml FLUSH ASDIRECTED PRN PRN Reason: Keep Vein Open Last Admin: 06/20/16 10:17 Dose: 10 ml Sodium Chloride (Saline Flush) 10 ml FLUSH Q12H PRN PRN Reason: Keep Vein Open Temazepam (Restoril) 15 mg PO BEDTIME PRN PRN Reason: Insomnia Discontinued Medications Famotidine (Pepcid) 40 mg IVPUSH ONETIME ONE Stop: 06/19/16 10:54 Last Admin: 06/19/16 11:26 Dose: 40 mg Gabapentin (Neurontin) 100 mg PO DAILY [facility] Last Admin: 06/19/16 12:35 Dose: 100 mg Lactated Ringer's (Ringers, Lactated) 1,000 mls @ 999 mls/hr IV .BOLUS ONE Stop: 06/19/16 11:53 Last Admin: 06/19/16 11:57 Dose: 999 mls/hr Iopamidol (Isovue-300 (61%)) 100 ml IVPUSH ONETIME ONE Stop: 06/20/16 10:31 Ondansetron HCl (Zofran) 4 mg IVPUSH ONETIME ONE Stop: 06/19/16 10:54 Last Admin: 06/19/16 11:26 Dose: 4 mg Pantoprazole Sodium (Protonix Iv) 40 mg IVPUSH ONETIME ONE Stop: 06/19/16 10:54 Last Admin: 06/19/16 11:26 Dose: 40 mg - Exam Quality Assessment: DVT prophylaxis. No: supplemental oxygen, central line/PICC , urine catheter, restraints General: alert, oriented, cooperative, no acute distress HEENT: Pupils equal, Pupils reactive, EOMI, Mucous membr. moist/pink, Other ( Glasses) Neck: supple, trachea midline, no JVD, no thyromegaly. No: lymphadenopathy Lungs: Normal respiratory effort, Rales (Bilateral basilar rales-mild). No: Rhonchi, Rub, Stridor, Wheezing Cardiovascular: Regular Rate, Regular Rhythm, No Murmurs. No: Gallops, Rubs Abdomen: bowel sounds present, soft, no distension, rebound (Borderline), tenderness (Bilateral lower quadrant palpation pain-mild). No: guarding, CVA tenderness (Female) Exam: Deferred Back Exam: normal inspection, full range of motion. No: CVA tenderness (L), CVA tenderness (R), muscle spasm Extremities: no edema, normal pulses, no tenderness/swelling, no calf tenderness Peripheral Pulses: 2+: radial (L), radial (R), dorsalis pedis (L), dorsalis pedis (R) Skin: warm, dry, intact. No: rash, ecchymosis Neurological: no new focal deficit Psy/Mental Status: alert, normal affect, normal mood - Problem List & Annotations (1) Abdominal pain SNOMED Code(s): 88899969 Code(s): R10.9 - UNSPECIFIED ABDOMINAL PAIN Status: Acute Priority: High Current Visit: Yes Onset Date: 06/19/16 Qualifiers: Abdominal location: generalized Qualified Code(s): R10.84 - Generalized abdominal pain Annotation/Comment:: Nonspecific now mostly bilateral lower quadrant abdominal pain with progressive probable ileus and stable peritonitis by clinical exam. Differential diagnoses include viral gastroenteritis, diverticulitis, etc. with clinical evidence of diverticulitis to despite CT scan results as below. Secondary to progressive x-ray findings today CT scan of the abdomen and pelvis with oral and IV contrast was conducted REBECCA with results as below. Patient was premedicated with IV Solu-Medrol. Blood work and x-rays to be repeated in the a.m. with a [facility] physician to take care of the patient tomorrow. Abdominal assessments with vitals are to be continued. Patient wishes to eat, however we will delay this until CT results have been obtained. Consider NG tube therapy depending on her clinical course (2) Peritonitis SNOMED Code(s): 45982090, 73656755, 449359242 Code(s): K65.9 - PERITONITIS, UNSPECIFIED Status: Acute Priority: High Current Visit: Yes Onset Date: 06/19/16 Annotation/Comment:: Strong possibility of diverticulitis with secondary peritonitis as above. Continue IV Rocephin and IV Flagyl. Patient would likely benefit from an EGD and colonoscopy on an outpatient basis. Surgical/GI consultation as needed (3) Lactic acid increased SNOMED Code(s): 18719738 Code(s): E87.2 - ACIDOSIS Status: Acute Priority: High Current Visit: Yes Onset Date: 06/19/16 Annotation/Comment:: No sepsis with lactic acid levels normal at this time (4) Peptic reflux disease SNOMED Code(s): 31754996 Code(s): K21.9 - GASTRO-ESOPHAGEAL REFLUX DISEASE WITHOUT ESOPHAGITIS Status: Chronic Priority: Medium Current Visit: No Annotation/Comment:: Stable by history. High-dose IV Pepcid and IV Protonix given in the emergency room as GI prophylaxis. Continue to observe closely (5) HTN, Benign hypertension SNOMED Code(s): 25025239 Code(s): I10 - ESSENTIAL (PRIMARY) HYPERTENSION Status: Chronic Priority : Medium Current Visit: Yes Annotation/Comment:: Blood pressures under good control (6) Dehydration SNOMED Code(s): 52930548 Code(s): E86.0 - DEHYDRATION Status: Acute Priority: High Current Visit : No Onset Date: 06/19/16 Annotation/Comment:: Resolved. Initiate diet with caution as above (7) Seizure disorder SNOMED Code(s): 733241523 Code(s): G40.909 - EPILEPSY, UNSP, NOT INTRACTABLE, WITHOUT STATUS EPILEPTICUS Status: Chronic Priority: High Current Visit: Yes Onset Date : 03/09/15 Annotation/Comment:: No seizure activity during this hospitalization (8) Heart disease SNOMED Code(s): 54721353 Code(s): I51.9 - HEART DISEASE, UNSPECIFIED Status: Chronic Priority: Medium Current Visit: Yes Annotation/Comment:: Note history of CHF and valvular disease as above. Stable by history with no recent chest pain, anginal complaints, etc. No evidence of clinical CHF. (9) COPD (chronic obstructive pulmonary disease) SNOMED Code(s): 55625248 Code(s): J44.9 - CHRONIC OBSTRUCTIVE PULMONARY DISEASE, UNSPECIFIED Status : Chronic Priority: Medium Current Visit: No Qualifiers: COPD type: unspecified COPD Qualified Code(s): J44.9 - Chronic obstructive pulmonary disease, unspecified Annotation/Comment:: Stable by history with no recent fever or bronchitic-type symptoms, etc., although progressive cough this morning. Questionable right lateral lobe pneumonia, which should be covered by her IV Rocephin (10) Hypoalbuminemia SNOMED Code(s): 514785190 Code(s): E88.09 - OTH DISORDERS OF PLASMA-PROTEIN METABOLISM, NEC Status: Acute Priority: Medium Current Visit: Yes Onset Date: 06/20/16 Annotation/Comment:: Initiate high protein Glucerna supplements - Problem List Review Problem List Initiated/Reviewed/Updated: Yes - My Orders Last 24 Hours: My Active Orders 06/19/16 14:00 Acetaminophen [Tylenol] 650 mg PO Q4H PRN Albuterol [Proventil Neb Soln] 2.5 mg INH Q2H PRN Ondansetron [Zofran] 4 mg IVPUSH Q6H PRN 06/19/16 14:03 Communication Order [RC] ROUTINE Resuscitation Status Routine 06/19/16 14:04 Anti-Embolism Stockings AK [Antiembolic Hose] [OM.PC] Routine 06/19/16 14:05 DVT/VTE Prophylaxis Reflex [OM.PC] Routine GM Immunization Reflex [OM.PC] Click To Edit 06/19/16 14:07 Oxygen Therapy [RC] ASDIRECTED Pulse Oximetry [RC] ASDIRECTED 06/19/16 14:08 Antiembolic Devices [RC] .Routine Antiembolic Devices [RC] 08,20 Communication Order [RC] Q4HR Up With Assistance [RC] ASDIRECTED VTE/DVT Education [RC] PER UNIT ROUTINE Vital Signs [RC] Q4HR 06/19/16 14:09 Albuterol/Ipratropium [DuoNeb 3.0-0.5 MG/3 ML] 3 ml NEB Q4HRRT PRN Sodium Chloride 0.9% [Saline Flush] 10 ml FLUSH Q12H PRN Temazepam [Restoril] 15 mg PO BEDTIME PRN 06/19/16 14:11 RT Aerosol Therapy [RC] 08,02,14,20 06/19/16 14:13 RT Aerosol Therapy [RC] .PRN 06/19/16 14:15 Dextrose 5%-Lactated Ringers 1,000 ml IV ASDIRECTED 06/19/16 20:00 Albuterol/Ipratropium [DuoNeb 3.0-0.5 MG/3 ML] 3 ml NEB Q6HRRT Budesonide [Pulmicort] 0.25 mg NEB BIDRT Gabapentin [Neurontin] 300 mg PO BEDTIME 06/19/16 23:00 Pantoprazole [ProTONIX IV] 40 mg IVPUSH Q12H 06/19/16 Lunch Nothing per Oral Now Diet [DIET] 06/20/16 05:11 Abdomen Series w Chest 1V [CR] Routine 06/20/16 08:00 Furosemide [Lasix] 20 mg PO DAILY Gabapentin [Neurontin] 100 mg PO DAILY 06/20/16 09:21 Abdomen Pelvis w Cont [CT] Stat 06/20/16 10:50 methylPREDNISolone Sod Succ [Solu-MEDROL] 125 mg IVPUSH ONETIME ONE 06/20/16 12:00 Cyanocobalamin (Vitamin B12) [Vitamin B12] 1,000 mcg PO DAILY@1200 Montelukast [Singulair] 10 mg PO DAILY@1200 - Assessment Assessment:: As above - Plan Plan:: As above. Extensive precautions were given to the patient, who is in agreement with the treatment plan. She will require about 2-3 days of hospitalization
[2016-06-20] MEDS: Montelukast 10 MG Tab PO SCH (12:38)
[2016-06-20] MEDS: Cyanocobalamin (Vitamin B12) 1,000 MCG Tab PO SCH (12:38)
[2016-06-20] MEDS: cefTRIAXone 1 GM in Sodium Chloride 0.9% 100 ML IV SCH (12:39)
[2016-06-21] MEDS: cefTRIAXone 1 GM in Sodium Chloride 0.9% 100 ML IV SCH ×2 (00:46→11:52)
[2016-06-21] MEDS: Pantoprazole 40 MG Vial IVPUSH SCH ×2 (00:46→11:52)
[2016-06-21] MEDS: Dextrose 5%-Lactated Ringers 1,000 ML IV SCH ×2 (01:58→18:29)
[2016-06-21] MEDS: Albuterol/Ipratropium 3.0-0.5 MG/3 ML Neb Soln NEB SCH ×4 (02:03→19:44)
[2016-06-21] MEDS: metroNIDAZOLE/Normal Saline 500 MG in Premix Bag 1 BAG IV SCH ×3 (04:50→19:55)
[2016-06-21 08:18] LABS: CHLORIDE,CL 106 mmol/L (98-107); SODIUM,NA 141 mmol/L (136-145)
[2016-06-21] MEDS: Furosemide 20 MG Tab PO SCH (08:50)
[2016-06-21] MEDS: Gabapentin 100 MG Cap PO SCH ×2 (08:50→19:55)
[2016-06-21] MEDS: Budesonide 0.25 MG/2 ML Neb Susp NEB SCH ×2 (08:50→19:47)
[2016-06-21] MEDS: Montelukast 10 MG Tab PO SCH (11:52)
[2016-06-21] MEDS: Cyanocobalamin (Vitamin B12) 1,000 MCG Tab PO SCH (11:52)
[2016-06-21] MEDS: Sodium Chloride 0.9% 10 ML Syringe FLUSH PRN ×2 (11:55→12:32)
--- NOTE | 2016-06-21 18:05 | PCM.PN ---
- General Info Date of Service: 06/21/16 Admission Dx/Problem (Free Text): Abdominal pain Subjective Update: Feels improved. Would like to advance from clear fluid diet, says she is hungry. Abdominal discomfort much improved. No bowel movement since yesterday. Functional Status: Reports: pain controlled, tolerating diet, ambulating, urinating - Review of Systems General: Reports: No Symptoms HEENT: Reports: no symptoms Pulmonary: Reports: no symptoms Cardiovascular: Reports: No Symptoms Gastrointestinal: Reports: Abdominal pain (much better). Denies: Constipation, Diarrhea, Hematochezia, Melena, Nausea, Vomiting Genitourinary: Reports: no symptoms Musculoskeletal: Reports: no symptoms Skin: Reports: no symptoms Neurological: Reports: No Symptoms Psychiatric: Reports: no symptoms - Patient Data Vitals - most recent: Last Vital Signs Temp 36.4 C 06/21/16 12:00 Pulse 52 L 06/21/16 12:00 Resp 18 06/21/16 05:17 BP 124/40 L 06/21/16 12:00 Pulse Ox 95 06/21/16 12:00 Weight - most recent: 74.843 kg I&O - last 24 hours: Intake & Output 06/21/16 06/21/16 06/21/16 06:59 14:59 22:59 Intake Total 610 480 200 Output Total 1200 300 Balance -590 180 200 Lab Results last 24 hrs: Laboratory Results - last 24 hr 06/21/16 06/21/16 Range/Units 07:25 07:25 WBC 8.9 (4.0-10.2) K/uL RBC 3.84 (3.77-5.09) M/uL Hgb 11.6 L (11.7-15.5) g/dL Hct 35.2 (34.0-46.0) % MCV 91.7 (84.0-98.0) fL MCH 30.2 (28.2-33.3) pg MCHC 33.0 (31.7-36.0) g/dL RDW 12.8 (11.2-14.1) % Plt Count 206 (150-350) K/uL Neut % (Auto) 73.5 (45.0-80.0) % Lymph % (Auto) 16.9 (10.0-50.0) % [place] % (Auto) 9.4 (2.0-14.0) % Eos % (Auto) 0.1 (0.0-5.0) % Baso % (Auto) 0.1 (0.0-2.0) % Neut # (Auto) 6.57 (1.40-7.00) K/uL Lymph # (Auto) 1.51 (0.50-3.50) K/uL [place] # (Auto) 0.84 (0.00-1.00) K/uL Eos # (Auto) 0.01 (0.00-0.50) K/uL Baso # (Auto) 0.01 (0.00-0.20) K/uL Sodium 141 (136-145) mmol/L Potassium 3.5 (3.5-5.1) mmol/L Chloride 106 (98-107) mmol/L Carbon Dioxide 26.7 (21.0-32.0) mmol/L BUN 7 (7-18) mg/dL Creatinine 0.66 (0.51-1.17) mg/dL Est Cr Clr Drug Dosing 48.02 mL/min Estimated GFR (MDRD) > 60 mL/min Glucose 130 H (74-106) mg/dL Calcium 8.4 L (8.5-10.1) mg/dL Total Bilirubin 0.2 (0.2-1.0) mg/dL AST 24 (15-37) U/L ALT 32 (12-78) U/L Alkaline Phosphatase 73 (46-116) IU/L Total Protein 6.2 L (6.4-8.2) g/dL Albumin 2.7 L (3.4-5.0) g/dL Med Orders - Current: Current Medications Acetaminophen (Tylenol) 650 mg PO Q4H PRN PRN Reason: Pain (Mild 1-3)/fever Last Admin: 06/20/16 13:50 Dose: 650 mg Albuterol (Proventil Neb Soln) 2.5 mg INH Q2H PRN PRN Reason: SHORTNESS OF BREATH Albuterol/Ipratropium (Duoneb 3.0-0.5 Mg/3 Ml) 3 ml NEB Q4HRRT PRN PRN Reason: Dyspnea Albuterol/Ipratropium (Duoneb 3.0-0.5 Mg/3 Ml) 3 ml NEB Q6HRRT [facility] Last Admin: 06/21/16 13:48 Dose: 3 ml Budesonide (Pulmicort) 0.25 mg NEB BIDRT [facility] Last Admin: 06/21/16 08:50 Dose: 0.25 mg Cyanocobalamin (Vitamin B12) 1,000 mcg PO DAILY@1200 [facility] Last Admin: 06/21/16 11:52 Dose: 1,000 mcg Furosemide (Lasix) 20 mg PO DAILY [facility] Last Admin: 06/21/16 08:50 Dose: 20 mg Gabapentin (Neurontin) 300 mg PO BEDTIME [facility] Last Admin: 06/20/16 20:15 Dose: 300 mg Gabapentin (Neurontin) 100 mg PO DAILY [facility] Last Admin: 06/21/16 08:50 Dose: 100 mg Ceftriaxone Sodium 1 gm/ (Sodium Chloride) 100 mls @ 200 mls/hr IV Q12H [facility] Last Admin: 06/21/16 11:52 Dose: 200 mls/hr Metronidazole 500 mg/ Premix 100 mls @ 100 mls/hr IV Q8H [facility] Last Admin: 06/21/16 12:29 Dose: 100 mls/hr Dextrose/Lactated Ringer's (Dextrose 5%-Lactated Ringers) 1,000 mls @ 80 mls/ hr IV ASDIRECTED [facility] Last Admin: 06/21/16 01:58 Dose: 80 mls/hr Montelukast Sodium (Singulair) 10 mg PO DAILY@1200 [facility] Last Admin: 06/21/16 11:52 Dose: 10 mg Ondansetron HCl (Zofran) 4 mg IVPUSH Q6H PRN PRN Reason: Nausea/Vomiting Last Admin: 06/20/16 10:17 Dose: 4 mg Pantoprazole Sodium (Protonix Iv) 40 mg IVPUSH Q12H [facility] Last Admin: 06/21/16 11:52 Dose: 40 mg Sodium Chloride (Saline Flush) 10 ml FLUSH ASDIRECTED PRN PRN Reason: Keep Vein Open Last Admin: 06/21/16 12:32 Dose: 10 ml Sodium Chloride (Saline Flush) 10 ml FLUSH Q12H PRN PRN Reason: Keep Vein Open Temazepam (Restoril) 15 mg PO BEDTIME PRN PRN Reason: Insomnia Discontinued Medications Famotidine (Pepcid) 40 mg IVPUSH ONETIME ONE Stop: 06/19/16 10:54 Last Admin: 06/19/16 11:26 Dose: 40 mg Gabapentin (Neurontin) 100 mg PO DAILY [facility] Last Admin: 06/19/16 12:35 Dose: 100 mg Lactated Ringer's (Ringers, Lactated) 1,000 mls @ 999 mls/hr IV .BOLUS ONE Stop: 06/19/16 11:53 Last Admin: 06/19/16 11:57 Dose: 999 mls/hr Iopamidol (Isovue-300 (61%)) 100 ml IVPUSH ONETIME ONE Stop: 06/20/16 10:31 Last Admin: 06/20/16 11:51 Dose: 100 ml Methylprednisolone Sodium Succinate (Solu-Medrol) 125 mg IVPUSH ONETIME ONE Stop: 06/20/16 10:51 Last Admin: 06/20/16 11:22 Dose: 125 mg Ondansetron HCl (Zofran) 4 mg IVPUSH ONETIME ONE Stop: 06/19/16 10:54 Last Admin: 06/19/16 11:26 Dose: 4 mg Pantoprazole Sodium (Protonix Iv) 40 mg IVPUSH ONETIME ONE Stop: 06/19/16 10:54 Last Admin: 06/19/16 11:26 Dose: 40 mg - Exam General: alert, oriented, cooperative, no acute distress HEENT: Pupils equal, Pupils reactive, EOMI, Mucous membr. moist/pink Neck: supple Lungs: Clear to auscultation, Normal respiratory effort Cardiovascular: Regular Rate, Regular Rhythm, No Murmurs Abdomen: bowel sounds present, soft, tenderness (mild, diffuse over all quadrants). No: rigidity, rebound, guarding, distension Back Exam: No: CVA tenderness (L), CVA tenderness (R) Extremities: no calf tenderness Peripheral Pulses: 2+: radial (L), radial (R) Skin: warm, dry, intact Neurological: no new focal deficit Psy/Mental Status: alert, normal affect, normal mood - Problem List & Annotations (1) Abdominal pain SNOMED Code(s): 08826647 Code(s): R10.9 - UNSPECIFIED ABDOMINAL PAIN Status: Acute Priority: High Current Visit: Yes Onset Date: 06/19/16 Qualifiers: Abdominal location: generalized Qualified Code(s): R10.84 - Generalized abdominal pain Annotation/Comment:: Nonspecific and improved. No guarding or rebound at present. Differential diagnoses includes viral gastroenteritis, diverticulitis , etc. with clinical evidence of diverticulitis to despite CT scan results as below. (2) COPD (chronic obstructive pulmonary disease) SNOMED Code(s): 97377058 Code(s): J44.9 - CHRONIC OBSTRUCTIVE PULMONARY DISEASE, UNSPECIFIED Status : Acute Current Visit: Yes (3) Dehydration SNOMED Code(s): 25104570 Code(s): E86.0 - DEHYDRATION Status: Acute Current Visit: Yes (4) Hypoalbuminemia SNOMED Code(s): 932814503 Code(s): E88.09 - OTH DISORDERS OF PLASMA-PROTEIN METABOLISM, NEC Status: Acute Priority: Medium Current Visit: Yes Onset Date: 06/20/16 Annotation/Comment:: Initiate high protein Glucerna supplements (5) Lactic acid increased SNOMED Code(s): 58872749 Code(s): E87.2 - ACIDOSIS Status: Acute Priority: High Current Visit: Yes Onset Date: 06/19/16 Annotation/Comment:: No sepsis with lactic acid levels normal at this time (6) Peptic reflux disease SNOMED Code(s): 05023597 Code(s): K21.9 - GASTRO-ESOPHAGEAL REFLUX DISEASE WITHOUT ESOPHAGITIS Status: Acute Current Visit: Yes (7) Peritonitis SNOMED Code(s): 12248993, 14434133, 806305853 Code(s): K65.9 - PERITONITIS, UNSPECIFIED Status: Acute Priority: High Current Visit: Yes Onset Date: 06/19/16 Annotation/Comment:: Strong possibility of diverticulitis with secondary peritonitis as above. Continue IV Rocephin and IV Flagyl. Patient would likely benefit from an EGD and colonoscopy on an outpatient basis. Surgical/GI consultation as needed (8) HTN, Benign hypertension SNOMED Code(s): 58274243 Code(s): I10 - ESSENTIAL (PRIMARY) HYPERTENSION Status: Chronic Priority : Medium Current Visit: Yes Annotation/Comment:: Blood pressures under good control (9) Heart disease SNOMED Code(s): 83493448 Code(s): I51.9 - HEART DISEASE, UNSPECIFIED Status: Chronic Priority: Medium Current Visit: Yes Annotation/Comment:: Note history of CHF and valvular disease as above. Stable by history with no recent chest pain, anginal complaints, etc. No evidence of clinical CHF. (10) Seizure disorder SNOMED Code(s): 263171950 Code(s): G40.909 - EPILEPSY, UNSP, NOT INTRACTABLE, WITHOUT STATUS EPILEPTICUS Status: Chronic Priority: High Current Visit: Yes Onset Date : 03/09/15 Annotation/Comment:: No seizure activity during this hospitalization - Problem List Review Problem List Initiated/Reviewed/Updated: Yes - Assessment Assessment:: Abdominal pain, vomiting, loose stools. Significantly improved. WBC normal. Chemistry overall unremarkable. - Plan Plan:: Continue current plan, including Rocephin and Flagyl. [place] diet ordered. Continue to observe for changes. Probable discharge in 1-2 days.
[2016-06-21] MEDS ORDERED: Ondansetron 4 MG Tab.DIS PO PRN (20:14)
[2016-06-21] MEDS: metroNIDAZOLE 500 MG Tab PO SCH (20:32)
[2016-06-22] MEDS: Albuterol/Ipratropium 3.0-0.5 MG/3 ML Neb Soln NEB SCH ×2 (02:13→08:36)
[2016-06-22] MEDS: metroNIDAZOLE 500 MG Tab PO SCH ×2 (04:39→11:37)
[2016-06-22 07:22] LABS: CHLORIDE,CL 106 mmol/L (98-107); SODIUM,NA 142 mmol/L (136-145)
[2016-06-22] MEDS ORDERED: Pantoprazole 40 MG Tab.CR PO SCH (07:30)
[2016-06-22] MEDS: Furosemide 20 MG Tab PO SCH (08:36)
[2016-06-22] MEDS: Budesonide 0.25 MG/2 ML Neb Susp NEB SCH (08:36)
[2016-06-22] MEDS: Gabapentin 100 MG Cap PO SCH (08:37)
--- NOTE | 2016-06-22 10:12 | PCM.DCSUM1 ---
Discharge Summary - Hospital Course HPI Initial Comments: See ER note/admission H&P Brief History: See ER note/admission H&P - Discharge Data Discharge Date: 06/22/16 Discharge Disposition: Home, Self-Care 01 Condition: Good - Discharge Diagnosis/Problem(s) (1) Abdominal pain SNOMED Code(s): 72498598 ICD Code: R10.9 - UNSPECIFIED ABDOMINAL PAIN Status: Acute Priority: High Current Visit: Yes Onset Date: 06/19/16 Problem Details: No abdominal pain today with stable mild loose stools likely secondary to Rocephin therapy, which he has otherwise tolerated well with no sign of allergic reactions, etc. IV access was lost yesterday with patient stable on oral medications and refusing further IV therapy at this time. Nonspecific previous allergic reaction, i.e., dizziness, to penicillins in the past with patient to be discharged on oral Augmentin and Flagyl. No guarding or rebound at present with resolution of probable borderline peritonitis. Evidence of clinical diverticulitis despite previous CT scan as below. Further GI workup including recommended EGD and colonoscopy after her condition has stabilized. Patient is tolerating bland diet at this time. Qualifiers: Abdominal location: generalized Qualified Code(s): R10.84 - Generalized abdominal pain (2) Peritonitis SNOMED Code(s): 98871073, 08094201, 758659667 ICD Code: K65.9 - PERITONITIS, UNSPECIFIED Status: Acute Priority: High Current Visit: Yes Onset Date: 06/19/16 Problem Details: As above. Surgical/GI consultation as needed (3) Lactic acid increased SNOMED Code(s): 14113820 ICD Code: E87.2 - ACIDOSIS Status: Acute Priority: High Current Visit: Yes Onset Date: 06/19/16 Problem Details: No clinical evidence of sepsis during this hospitalization with normalization of lactic acid levels (4) Peptic reflux disease SNOMED Code(s): 08500427 ICD Code: K21.9 - GASTRO-ESOPHAGEAL REFLUX DISEASE WITHOUT ESOPHAGITIS Status: Chronic Priority: Medium Current Visit: No Problem Details: Stable by history. High-dose IV Pepcid and IV Protonix given in the emergency room as GI prophylaxis. Continue to observe closely. Further GI workup as above (5) HTN, Benign hypertension SNOMED Code(s): 97973390 ICD Code: I10 - ESSENTIAL (PRIMARY) HYPERTENSION Status: Chronic Priority : Medium Current Visit: Yes Problem Details: Blood pressures under good control (6) Dehydration SNOMED Code(s): 82038799 ICD Code: E86.0 - DEHYDRATION Status: Acute Priority: High Current Visit: No Onset Date: 06/19/16 Problem Details: Resolved. Diet tolerated at discharge as above (7) Seizure disorder SNOMED Code(s): 734870830 ICD Code: G40.909 - EPILEPSY, UNSP, NOT INTRACTABLE, WITHOUT STATUS EPILEPTICUS Status: Chronic Priority: High Current Visit: Yes Onset Date : 03/09/15 Problem Details: No seizure activity during this hospitalization (8) Heart disease SNOMED Code(s): 28402354 ICD Code: I51.9 - HEART DISEASE, UNSPECIFIED Status: Chronic Priority: Medium Current Visit: Yes Problem Details: Note history of CHF and valvular disease as above. Stable by history with no recent chest pain, anginal complaints, etc. No evidence of clinical CHF. (9) COPD (chronic obstructive pulmonary disease) SNOMED Code(s): 58659829 ICD Code: J44.9 - CHRONIC OBSTRUCTIVE PULMONARY DISEASE, UNSPECIFIED Status : Chronic Priority: Medium Current Visit: No Problem Details: Stable by history with no recent fever or bronchitic-type symptoms, etc., although history of chronic cough. The patient does have Mucinex DM at home. Previous questionable right lateral lobe pneumonia with repeat acute abdominal x-rays at followup as per discharge instructions Qualifiers: COPD type: unspecified COPD Qualified Code(s): J44.9 - Chronic obstructive pulmonary disease, unspecified (10) Hypoalbuminemia SNOMED Code(s): 222952310 ICD Code: E88.09 - [facility] DISORDERS OF PLASMA-PROTEIN METABOLISM, NEC Status: Acute Priority: Medium Current Visit: Yes Onset Date: 06/20/16 Problem Details: Continue high protein Glucerna supplements (11) Hypokalemia SNOMED Code(s): 85798608 ICD Code: E87.6 - HYPOKALEMIA Status: Acute Priority: Medium Current Visit: Yes Onset Date: 06/22/16 Problem Details: Mild hypokalemia likely secondary to some diarrhea from antibiotic therapy. Low-dose potassium supplement at discharge with close followup by regular provider and likely only short-term potassium supplementation required (12) Hypocalcemia SNOMED Code(s): 1726085 ICD Code: E83.51 - HYPOCALCEMIA Status: Acute Priority: Medium Current Visit: Yes Onset Date: 06/22/16 Problem Details: Observe for now with repeat blood work as per discharge instructions (13) Elevated LFTs SNOMED Code(s): 079318426 ICD Code: R94.5 - ABNORMAL RESULTS OF LIVER FUNCTION STUDIES Status: Acute Priority: Medium Current Visit: Yes Onset Date: 06/22/16 Problem Details: Mild LFTs elevation likely secondary to antibiotic therapy. Close followup by regular provider as per discharge instruction (14) Pneumonia SNOMED Code(s): 565483079 ICD Code: J18.9 - PNEUMONIA, UNSPECIFIED ORGANISM Status: Acute Current Visit: Yes Onset Date: ~06/20/16 Problem Details: As above. Note history of chronic cough. No direct history or evidence of aspiration Qualifiers: Pneumonia type: due to unspecified organism Laterality: right Lung location: middle lobe of lung Qualified Code(s): J18.1 - Lobar pneumonia, unspecified organism - Patient Summary/Data Operative Procedure(s) Performed: None Complications: None Consults: None Labs Pending at D/C: None Recommended Follow-up Testing/Procedures: As per discharge instructions Planned Operative Procedure(s) after DC: As per discharge instructions Hospital Course: The patient was admitted to inpatient/acute care and treatment of suspected clinical diverticulitis and borderline peritonitis with overall good response to aggressive IV Rocephin and IV Flagyl therapy, which she tolerated well. Additional evidence of possible right middle lobe pneumonia, although sputum specimen could not be obtained. Patient responded extremely well to above therapy with no further complications. Otherwise hospital care and course as above - Patient Instructions Diet: GI Soft/Low Residue/Low Fiber Diet, Other: Advance as per discharge instructions Activity: As Tolerated Driving: May Drive Today Showering/Bathing: May Shower Notify Provider of: Fever, Increased Pain, Nausea and/or Vomiting Other/Special Instructions: 1. Followup with your regular provider in one week for reevaluation and recommended repeat CBC, comprehensive metabolic panel, and acute abdominal x-rays. 2. [place] diet including encouragement of oral fluids such as sports drinks, etc. for 24-48 hours as directed. Advance to strict heart healthy, diverticulosis diet as tolerated thereafter. 3. High Protein Glucerna supplements twice a day and snacks. 4. Discuss recommended EGD and colonoscopy with your regular provider at the above followup. 5. Restart your albuterol nebulizer therapy on a 4 times a day on a regular basis until otherwise directed by your regular providers. You may use this medication every 4 hour when necessary. 6. Initiate your previous Mucinex DM 1 tab by mouth twice a day for at least the next 10 days and may change to an as-needed basis thereafter - Discharge Plan Prescriptions/Med Rec: Amoxicillin/Potassium Clav [Augmentin 875-125 Tablet] 1 each PO BIDMEALS #20 tablet Potassium Chloride 10 meq PO DAILY #14 capsule.er metroNIDAZOLE [Flagyl] 500 mg PO Q8H #30 tablet Home Medications: Home Meds Budesonide [Pulmicort] 0.5 mg IH BID 08/21/13 [History] Furosemide [Lasix] 20 mg PO DAILY 08/21/13 [History] Omeprazole [Prilosec] 20 mg PO DAILY 08/21/13 [History] Lutein 12 mg PO PCDINNER 05/28/14 [History] Meclizine [Antivert] 25 mg PO TID PRN 05/28/14 [History] Montelukast Sodium [Singulair] 10 mg PO DAILY@1200 05/28/14 [History] Albuterol [Proair HFA] 1 - 2 inh INH Q4HR PRN 11/27/14 [History] Calcium Carb/Vitamin D3/Vit K1 [Calcium + Vit D & K Chew] 1 each PO DAILY [History] Gabapentin [Neurontin] 3 cap PO BEDTIME 03/04/16 [History] Gabapentin [Neurontin] 100 mg PO DAILY 03/04/16 [History] Cyanocobalamin (Vitamin B-12) [Vitamin B-12] 1,000 mcg PO DAILY@1200 05/02/16 [ History] Albuterol Sulfate 2.5 mg IH QID #60 vial 06/22/16 [Rx] Amoxicillin/Potassium Clav [Augmentin 875-125 Tablet] 1 each PO BIDMEALS #20 tablet 06/22/16 [Rx] Potassium Chloride 10 meq PO DAILY #14 capsule.er 06/22/16 [Rx] metroNIDAZOLE [Flagyl] 500 mg PO Q8H #30 tablet 06/22/16 [Rx] Patient Handouts: Diverticulitis, [id number], Diverticulosis Forms: ED Department Discharge Referrals: Josiah Reardon PA [Primary Care Provider] - - Discharge Summary/Plan Comment DC Time >30 min.: Yes Discharge Summary/Plan Comment: As above. Extensive precautions were given to the patient, who is in agreement with the treatment plan. - General Info Date of Service: 06/22/16 Admission Dx/Problem (Free Text: Diverticulitis Functional Status: Reports: pain controlled, tolerating diet, ambulating, urinating. Denies: new symptoms, incentive spirometry Numeric/FACES Score: 0 - Review of Systems General: Reports: No Symptoms. Denies: Fever, Weakness, Fatigue, Malaise, Chills, Night Sweats, Appetite (Appetite good and tolerating diet well as above) HEENT: Reports: post nasal drip, rhinitis. Denies: ear pain, eye pain, headaches, sinus congestion, sore throat, visual changes Pulmonary: Reports: cough, sputum (Chronic clear). Denies: shortness of breath , pleuritic chest pain, hemoptysis, wheezing Cardiovascular: Reports: Orthopnea, Edema (Some mild dependent edema and hand swelling). Denies: Chest Pain, Palpitations, Dyspnea on Exertion, Lightheadedness Gastrointestinal: Reports: Diarrhea (Improved). Denies: Abdominal pain, Constipation, Decreased appetite, Difficulty swallowing, Flatus, Hematochezia, Melena, Nausea, Vomiting Genitourinary: Reports: no symptoms. Denies: dysuria, frequency, burning, pain , urgency, incontinence, hematuria, retention, flank pain Musculoskeletal: Reports: other (Mild dependent edema and swelling). Denies: neck pain, shoulder pain, arm pain, back pain, leg pain Skin: Reports: no symptoms. Denies: jaundice, pallor, diaphoresis, bruising Neurological: Reports: No Symptoms. Denies: Confusion, Dizziness, Headache, Numbness, Paresthesia, Seizure, Syncope, Tingling, Weakness Psychiatric: Reports: no symptoms. Denies: confusion, depression, anxiety - Patient Data Vitals - Most Recent: Last Vital Signs Temp 36.7 C 06/22/16 02:48 Pulse 60 06/22/16 02:48 Resp 16 06/22/16 02:48 BP 148/55 H 06/22/16 02:48 Pulse Ox 95 06/22/16 02:48 Weight - Most Recent: 74.843 kg I&O - Last 24 hours: Intake & Output 06/21/16 06/22/16 06/22/16 22:59 06:59 14:59 Intake Total 760 160 120 Output Total 300 Balance 460 160 120 Vital Signs - 24 hr 06/21/16 06/21/16 06/22/16 12:00 18:00 02:48 Temperature [ 36.2 C Oral] Temperature [ 36.4 C 36.7 C Temporal] Pulse, 52 L 60 Peripheral [ Left Pulse Oximetry] Pulse, 63 Peripheral [ Right Pulse Oximetry] Respiratory 16 16 Rate Blood Pressure 124/40 L 119/52 L 148/55 H [Left Upper Arm ] Blood Pressure [Right Upper] O2 Sat by Pulse 95 94 L 95 Oximetry 06/22/16 08:00 Temperature [ 36.7 C Oral] Temperature [ Temporal] Pulse, 60 Peripheral [ Left Pulse Oximetry] Pulse, Peripheral [ Right Pulse Oximetry] Respiratory 17 Rate Blood Pressure [Left Upper Arm ] Blood Pressure 167/72 H [Right Upper] O2 Sat by Pulse 98 Oximetry Imaging Impressions - Last 24 hrs: Last Acute abdominal x-rays on 06/21/16 showed evidence of persistent moderate COPD changes and probable right middle lobe pulmonary infiltrates with no evidence of significant CHF, cardiomegaly, pneumothorax, etc., however probable pulmonary hypertension. Elevated right hemidiaphragm and moderate osteoarthritic changes present. Persistent moderately increased diffuse bowel gaseous pattern with occasional fluid levels but no free air and stool/contrast present in rectal vault. Telephone consultation at 12:42 p.m. on 06/20/16 with the radiology department at [facility] in [place]. Verbal report of CT scan of the abdomen and pelvis with both oral and IV contrast positive for moderate diverticulosis in the sigmoid region, however no direct evidence of acute diverticulitis abscess, etc. No other acute findings noted with the patient status post cholecystectomy and appendectomy Lab Results - Last 24 hrs: Laboratory Results - last 24 hr 06/22/16 06/22/16 06/22/16 Range/Units 02:30 06:55 06:55 WBC 8.9 (4.0-10.2) K/uL RBC 3.99 (3.77-5.09) M/uL Hgb 11.9 (11.7-15.5) g/dL Hct 36.5 (34.0-46.0) % MCV 91.5 (84.0-98.0) fL MCH 29.8 (28.2-33.3) pg MCHC 32.6 (31.7-36.0) g/dL RDW 13.1 (11.2-14.1) % Plt Count 228 (150-350) K/uL Neut % (Auto) 63.7 (45.0-80.0) % Lymph % (Auto) 25.8 (10.0-50.0) % Terrell % (Auto) 7.9 (2.0-14.0) % Eos % (Auto) 2.4 (0.0-5.0) % Baso % (Auto) 0.2 (0.0-2.0) % Neut # (Auto) 5.64 (1.40-7.00) K/uL Lymph # (Auto) 2.28 (0.50-3.50) K/uL Terrell # (Auto) 0.70 (0.00-1.00) K/uL Eos # (Auto) 0.21 (0.00-0.50) K/uL Baso # (Auto) 0.02 (0.00-0.20) K/uL Sodium 142 (136-145) mmol/L Potassium 3.3 L (3.5-5.1) mmol/L Chloride 106 (98-107) mmol/L Carbon Dioxide 28.6 (21.0-32.0) mmol/L BUN 8 (7-18) mg/dL Creatinine 0.71 (0.51-1.17) mg/dL Est Cr Clr Drug Dosing 44.64 mL/min Estimated GFR (MDRD) > 60 mL/min Glucose 98 (74-106) mg/dL Calcium 8.0 L (8.5-10.1) mg/dL Total Bilirubin 0.3 (0.2-1.0) mg/dL AST 38 H (15-37) U/L ALT 35 (12-78) U/L Alkaline Phosphatase 75 (46-116) IU/L Total Protein 6.3 L (6.4-8.2) g/dL Albumin 2.9 L (3.4-5.0) g/dL Specimen Type Urinblad Urine Color Yellow Urine Appearance Clear Urine pH 6.0 (5.0-9.0) Ur Specific [place] 1.010 (1.005-1.030) Urine Protein Negative (NEGATIVE) mg/dL Urine Glucose (UA) Negative (NEGATIVE) mg/dL Urine Ketones Negative (NEGATIVE) mg/dL Urine Occult Blood Negative (NEGATIVE) Urine Nitrite Negative (NEGATIVE) Urine Bilirubin Negative (NEGATIVE) Urine Urobilinogen 0.2 (0.2-1.0) E.U./dL Ur Leukocyte Esterase Negative (NEGATIVE) Urine RBC 0-5 /HPF Urine WBC 0-5 /HPF Ur Epithelial Cells Few /LPF Urine Bacteria Rare (NONE TO FEW) /HPF NIKA Results - Last 24 hrs: Microbiology 06/22/16 09:16 Stool Occult Blood (NIKA) - Final Stool / Feces NEGATIVE OCCULT BLOOD Microbiology 06/22/16 09:16 Stool / Feces Stool Occult Blood (NIKA) - Final NEGATIVE OCCULT BLOOD 06/19/16 21:05 Stool / Feces Stool Occult Blood (NIKA) - Final NEGATIVE OCCULT BLOOD 06/19/16 12:10 Nasopharyngeal Swab - Nare, Right Influenza Type A Antigen Screen - Final NEGATIVE INFLUENZA A VIRUS AG 06/19/16 12:10 Nasopharyngeal Swab - Nare, Right Influenza Type B Antigen Screen - Final NEGATIVE INFLUENZA B VIRUS AG 06/19/16 10:53 Stool / Feces Stool Occult Blood (NIKA) - Final NEGATIVE OCCULT BLOOD Med Orders - Current: Current Medications Acetaminophen (Tylenol) 650 mg PO Q4H PRN PRN Reason: Pain (Mild 1-3)/fever Last Admin: 06/20/16 13:50 Dose: 650 mg Albuterol (Proventil Neb Soln) 2.5 mg INH Q2H PRN PRN Reason: SHORTNESS OF BREATH Albuterol/Ipratropium (Duoneb 3.0-0.5 Mg/3 Ml) 3 ml NEB Q4HRRT PRN PRN Reason: Dyspnea Albuterol/Ipratropium (Duoneb 3.0-0.5 Mg/3 Ml) 3 ml NEB Q6HRRT [facility] Last Admin: 06/22/16 08:36 Dose: 3 ml Budesonide (Pulmicort) 0.25 mg NEB BIDRT [facility] Last Admin: 06/22/16 08:36 Dose: 0.25 mg Cyanocobalamin (Vitamin B12) 1,000 mcg PO DAILY@1200 CHRISTY Last Admin: 06/21/16 11:52 Dose: 1,000 mcg Furosemide (Lasix) 20 mg PO DAILY [facility] Last Admin: 06/22/16 08:36 Dose: 20 mg Gabapentin (Neurontin) 300 mg PO BEDTIME [facility] Last Admin: 06/21/16 19:55 Dose: 300 mg Gabapentin (Neurontin) 100 mg PO DAILY [facility] Last Admin: 06/22/16 08:37 Dose: 100 mg Metronidazole (Flagyl) 500 mg PO Q8H [facility] Last Admin: 06/22/16 04:39 Dose: 500 mg Montelukast Sodium (Singulair) 10 mg PO DAILY@1200 [facility] Last Admin: 06/21/16 11:52 Dose: 10 mg Ondansetron HCl (Zofran Odt) 4 mg PO Q6H PRN PRN Reason: Nausea/Vomiting Pantoprazole Sodium (Protonix) 40 mg PO BIDAC [facility] Last Admin: 06/22/16 08:36 Dose: 40 mg Temazepam (Restoril) 15 mg PO BEDTIME PRN PRN Reason: Insomnia Discontinued Medications Famotidine (Pepcid) 40 mg IVPUSH ONETIME ONE Stop: 06/19/16 10:54 Last Admin: 06/19/16 11:26 Dose: 40 mg Gabapentin (Neurontin) 100 mg PO DAILY [facility] Last Admin: 06/19/16 12:35 Dose: 100 mg Lactated Ringer's (Ringers, Lactated) 1,000 mls @ 999 mls/hr IV .BOLUS ONE Stop: 06/19/16 11:53 Last Admin: 06/19/16 11:57 Dose: 999 mls/hr Ceftriaxone Sodium 1 gm/ (Sodium Chloride) 100 mls @ 200 mls/hr IV Q12H [facility] Last Admin: 06/21/16 11:52 Dose: 200 mls/hr Metronidazole 500 mg/ Premix 100 mls @ 100 mls/hr IV Q8H [facility] Last Admin: 06/21/16 19:55 Dose: 100 mls/hr Dextrose/Lactated Ringer's (Dextrose 5%-Lactated Ringers) 1,000 mls @ 80 mls/ hr IV ASDIRECTED [facility] Last Admin: 06/21/16 18:29 Dose: 80 mls/hr Iopamidol (Isovue-300 (61%)) 100 ml IVPUSH ONETIME ONE Stop: 06/20/16 10:31 Last Admin: 06/20/16 11:51 Dose: 100 ml Methylprednisolone Sodium Succinate (Solu-Medrol) 125 mg IVPUSH ONETIME ONE Stop: 06/20/16 10:51 Last Admin: 06/20/16 11:22 Dose: 125 mg Ondansetron HCl (Zofran) 4 mg IVPUSH ONETIME ONE Stop: 06/19/16 10:54 Last Admin: 06/19/16 11:26 Dose: 4 mg Ondansetron HCl (Zofran) 4 mg IVPUSH Q6H PRN PRN Reason: Nausea/Vomiting Last Admin: 06/20/16 10:17 Dose: 4 mg Pantoprazole Sodium (Protonix Iv) 40 mg IVPUSH ONETIME ONE Stop: 06/19/16 10:54 Last Admin: 06/19/16 11:26 Dose: 40 mg Pantoprazole Sodium (Protonix Iv) 40 mg IVPUSH Q12H CHRISTY Last Admin: 06/21/16 11:52 Dose: 40 mg Sodium Chloride (Saline Flush) 10 ml FLUSH ASDIRECTED PRN PRN Reason: Keep Vein Open Last Admin: 06/21/16 12:32 Dose: 10 ml Sodium Chloride (Saline Flush) 10 ml FLUSH Q12H PRN PRN Reason: Keep Vein Open - Exam Quality Assessment: Reports: DVT prophylaxis. Denies: supplemental oxygen, central line/PICC, urine catheter, skin breakdown, restraints General: Reports: alert, oriented, cooperative, no acute distress HEENT: Reports: Pupils equal, Pupils reactive, EOMI, Mucous membr. moist/pink, Other (Mild clear nasal drainage) Neck: Reports: supple, trachea midline, no JVD, no thyromegaly, carotid bruit ( Mild bilateral carotid bruits). Denies: lymphadenopathy Lungs: Reports: Clear to auscultation, Normal respiratory effort. Denies: Rub Cardiovascular: Reports: Regular Rate, Regular Rhythm, No Murmurs. Denies: Gallops, Rubs Abdomen: Reports: bowel sounds present, soft, no tenderness, no distension, other (Obese). Denies: rebound, guarding, CVA tenderness (Female) Exam: Deferred Rectal (Female) Exam: Deferred Back Exam: Reports: normal inspection, full range of motion. Denies: CVA tenderness (L), CVA tenderness (R) Extremities: Reports: normal pulses, no tenderness/swelling, no calf tenderness , edema (Mild bilateral hand swelling with additional trace bilateral pedal/ pretibial edema) Skin: Reports: warm, dry, intact. Denies: rash, ecchymosis Neurological: Reports: no new focal deficit, other (No clinical orthostasis) Psy/Mental Status: Reports: alert, anxious (Mild to moderate). Denies: depressed (Good eye contact), agitated *Q Meaningful Use (DIS) - VTE *Q VTE Criteria *Q: - Stroke *Q Stroke Criteria *Q: - AMI *Q AMI Criteria *Q:
[2016-06-22 10:22] VITALS: BP 167/72
[2016-06-22] MEDS: Montelukast 10 MG Tab PO SCH (11:37)
[2016-06-22] MEDS: Cyanocobalamin (Vitamin B12) 1,000 MCG Tab PO SCH (11:37)
== END 2016-06-22 13:00 | disposition home or self-care (01) | DRG 391 ==
LOC: LL.ED 10:34 → LL.MS 13:45
PROVIDERS: ADMIT Family Medicine; ATTEND Family Medicine
DX: R10.84 Generalized abdominal pain (principal); K65.9 Peritonitis, unspecified; J18.1 Lobar pneumonia, unspecified organism; E87.2 Acidosis; K57.32 Diverticulitis of large intestine without perforation or abscess without bleeding; K21.9 Gastro-esophageal reflux disease without esophagitis; I10 Essential (primary) hypertension; I49.9 Cardiac arrhythmia, unspecified; I42.9 Cardiomyopathy, unspecified; I50.30 Unspecified diastolic (congestive) heart failure; I45.10 Unspecified right bundle-branch block; R01.1 Cardiac murmur, unspecified; E86.0 Dehydration; E78.00 Pure hypercholesterolemia, unspecified; I08.0 Rheumatic disorders of both mitral and aortic valves; K76.0 Fatty (change of) liver, not elsewhere classified; G40.909 Epilepsy, unspecified, not intractable, without status epilepticus; K29.70 Gastritis, unspecified, without bleeding; K75.9 Inflammatory liver disease, unspecified; K27.9 Peptic ulcer, site unspecified, unspecified as acute or chronic, without hemorrhage or perforation; I51.9 Heart disease, unspecified; M81.0 Age-related osteoporosis without current pathological fracture; J44.9 Chronic obstructive pulmonary disease, unspecified; E88.09 Other disorders of plasma-protein metabolism, not elsewhere classified; E87.6 Hypokalemia; E83.51 Hypocalcemia; R94.5 Abnormal results of liver function studies; I27.2 Other secondary pulmonary hypertension; J45.909 Unspecified asthma, uncomplicated; F41.8 Other specified anxiety disorders; Z88.8 Allergy status to other drugs, medicaments and biological substances; Z91.041 Radiographic dye allergy status; Z79.899 Other long term (current) drug therapy; Z85.828 Personal history of other malignant neoplasm of skin
CPT/HCPCS: 36415; 74022; 80053; 82150; 82272; 83605; 83690; 83735; 84550; 85025; 85610; 85730; 86318; 87804 ×2; 96361; 96365; 96367; 96375; 99285; A9270; C9113; J0696; J2405; J7050; J7120; 74177; 80185; 81001; 94640; 94664; J2930; J7042; J7634; Q9967; S0028